=== PATIENT | female | born 1990 | race Caucasian/White ===

== ENCOUNTER 2022-03-29 11:56 | Outpatient (CLI) | payer BC, SELFPAY ==
--- NOTE | 2022-03-29 12:15 | CRLHL7_ITS ---
For Patients: As a result of the Century Cures Act, medical imaging exams and procedure reports are released immediately into your electronic medical record. You may view this report before your referring provider. If you have questions, please contact your health care provider. INDICATION: Dating and viability. LMP 01/19/2022. COMPARISON: None. TECHNIQUE: Real-time boyd-scale imaging of the pelvis was performed. FINDINGS: Sonographic imaging demonstrates a single living intrauterine gestation. The embryo has a regular cardiac rate measuring 165 beats per minute. The embryo`s crown-rump length measurement of 3.7 cm corresponds to a gestational age of 10 weeks 4 days with a sonographic due date of 10/21/2022. There is a normal-appearing yolk sac. The placenta has not yet developed. No evidence of a perigestational hemorrhage. The cervix appears closed. The right ovary measures 3.7 x 3.0 x 2.5 cm and the left ovary measures 3.1 x 1.7 x 1.6 cm. There is a 2.5 cm corpus luteum in the right ovary. No free fluid in the cul-de-sac. IMPRESSION: 1. Single living intrauterine gestation with crown rump length 3.7 cm which corresponds to a gestational age of 10 weeks 4 days with a sonographic due date of 10/21/2022. 2. The clinical gestational age by LMP is 9 weeks 6 days. Dictated by Elisabet Jj MD @ 03/29/2022 12:58:57 PM (Electronically Signed)
== END 2022-03-29 11:57 | disposition home or self-care (01) ==
LOC: US 11:56
PROVIDERS: PCP Family Medicine; Visit Provider Physician Assistant
DX: Z34.91 Encounter for supervision of normal pregnancy, unspecified, first trimester (principal); Z3A.09 9 weeks gestation of pregnancy
CPT/HCPCS: 76801; 76817; 86592; 86703; 86762; 86787; 86803; 86850; 86900; 86901; 87086; 87340

== ENCOUNTER 2022-06-08 12:03 | Outpatient (CLI) | payer BC, SELFPAY ==
--- NOTE | 2022-06-08 12:15 | CRLHL7_ITS ---
For Patients: As a result of the Century Cures Act, medical imaging exams and procedure reports are released immediately into your electronic medical record. You may view this report before your referring provider. If you have questions, please contact your health care provider. INDICATION: Evaluate anatomy. COMPARISON: 03/29/2022 TECHNIQUE: Real time boyd scale imaging of the fetus was performed as well as color Doppler analysis of the umbilical vessels. FINDINGS: Sonographic imaging demonstrates a single living intrauterine gestation. Fetus demonstrates a regular cardiac rate of 145 beats per minute. Fetus has a vertex position. The placenta lies fundal without evidence of placenta previa. The edge of the placenta is more than 5 cm from the internal cervical os. Amniotic fluid volume appears normal. Single deepest vertical pocket: 5.9 cm. The cervix is closed and measures 3.2 cm in length. The composite ultrasound gestational age is calculated at 20 weeks 6 days with an estimated sonographic due date of 10/20/2022. The estimated weight is 365 grams which lies at the 79th %. The following biometric measurements were obtained: Biparietal diameter: 4.9 cm/20 weeks 6 days 84th% Head circumference: 18.1 cm/20 weeks 4 days 67th% Abdominal circumference: 15.6 cm/20 weeks 5 days 70th% Femur length: 3.3 cm/20 weeks 3 days 57th% The HC/AC ratio measures: 1.16 range (1.06-1.25) On anatomic survey, there is a normal appearance of the cerebral ventricles, cavum septi pellucidi, cisterna magna and cerebellum. The nose, lips, and facial profile appear normal. The cervical, thoracic and lumbar spine are well visualized and appear normal. There is a normal four-chamber heart view and the left and right ventricular outflow tracts appear normal. The diaphragm and stomach appear normal. The kidneys and bladder also appear normal. There is a normal three-vessel cord and cord insertion site. The four extremities appear normal. IMPRESSION: Normal OB ultrasound exam with concordance of clinical and sonographic dating. No intrinsic abnormalities noted on anatomic survey. Dictated by Chencho Marie MD @ 06/08/2022 1:09:02 PM (Electronically Signed)
== END 2022-06-08 12:04 | disposition home or self-care (01) ==
LOC: US 12:04
PROVIDERS: PCP Family Medicine; Visit Provider Registered Nurse
DX: Z34.92 Encounter for supervision of normal pregnancy, unspecified, second trimester (principal); Z3A.20 20 weeks gestation of pregnancy
CPT/HCPCS: 76805

== ENCOUNTER 2022-09-28 10:41 | Outpatient (CLI) | payer BC, MEDICAID, SELFPAY ==
[2022-09-29 11:08] LABS: Strep B DNA Probe NEGATIVE (Negative)
[2022-09-29 12:31] LABS: Strep B Pen/Amox Allergy No
== END 2022-09-28 10:42 | disposition home or self-care (01) ==
PROVIDERS: PCP Family Medicine; Visit Provider Advanced Practice Midwife
DX: Z34.93 Encounter for supervision of normal pregnancy, unspecified, third trimester (principal); Z3A.36 36 weeks gestation of pregnancy
CPT/HCPCS: 87081; 87653

== ENCOUNTER 2022-10-18 19:16 | Inpatient (IN) | payer BC, MEDICAID, SELFPAY ==
[2022-10-18] VITALS (7 sets, daily range): BP systolic 124–130; BP diastolic 61–83; PULSE 62–90; RESP 16; TEMP 36.6–37.2; BMI 23.8
[2022-10-18 20:10] LABS: Basophils Absolute Auto 0.02 K/uL (0.00-0.30); Basophils Percent Auto 0.2 % (0.0-3.0); Eosinophils Absolute Auto 0.05 K/uL (0.00-0.50); Eosinophils Percent Auto 0.5 % (0.0-7.0); Hematocrit 37.5 % (33.0-51.0); Hemoglobin* 12.8 gm/dL (12.0-16.0); Immature Granulocytes Abs Auto 0.06 K/uL (0.00-0.30); Immature Granulocytes Pct Auto 0.6 %; Lymphocytes Percent Auto 14.8 % (20-44); Mean Corpuscular HGB Conc 34 gm/dL (32-36); Mean Corpuscular Hemoglobin 29 pg (26-34); Mean Corpuscular Volume 86 fL (80-100); Monocytes Percent Auto 4.4 % (0.0-11.0); Neutrophils Percent Auto 79.5 % (42.0-72.0); Platelet Count* 154 K/uL (140-440); RDW Coefficient of Variation % 11.9 % (11.5-15.5); Red Blood Count 4.37 m/uL (4.00-5.20); White Blood Count* 10.03 K/uL (4.50-11.00)
[2022-10-18 20:12] LABS: Slide Review Reflex No
[2022-10-18] MEDS: OXYTOCIN 30 unit/500 ML in NS 30 UNIT/500 ML BAG IVPB (20:20)
[2022-10-18] MEDS: LACTATED RINGERS 1000 ML 1,000 ML 125 ML IV (20:23)
--- NOTE | 2022-10-18 20:37 | W.PM.LDBA ---
Subjective History of Present Illness Time Seen by Provider: 19:45 Date Seen: 10/18/22 Comments: Steve is being admitted to Labor and Delivery for an IOL for severe IUGR. She is a 32 year old G 2 P 1 at?38.6 weeks gestation. Her full history and physical was dictated by Anahi Sanders on 10/10/22. Please see this for details. Steve was seen in the clinic yesterday, where it was noted that she was measuring small for gestational age. In addition, there had been no change in fundal height X 3 appointments. A growth u/s was ordered, which was done today which demonstrated EFW [id number] grams, 5 lb 11 oz. This is under the 3 percentile. LC is also on the lower limits of normal (SDP 2.1/LC 6.2). BPP was 8/8 and cord dopplers WNL. She previously had an u/s on 08/15/22 for measring small for dates, and EFW at that time was noted to be 63%. She was notified of the severe IUGR and the recommendation for IOL immediately. Her partner is at the bedside for support. She desires an epidural for pain management. OB Problem List: H&P 10/10/22 by Anahi Sanders CNM 1. Pap , declined Pap at 1st OB 2. A negative Rhogam at 28 weeks: received Rhogam PP: 3. Measuring small for dates at 32 weeks -growth u/s at 28 wks, 63% -repeat growth ordered at 38 wks: OB - Problem Based A/P Additional Plan (1) IUGR (intrauterine growth restriction): Status: Acute (2) Encounter for induction of labor: Status: Acute Plan at 38.6 weeks GBS negative RH negative, otherwise uncomplicated IOL for severe IUGR 1. Admit to L & D for IOL 2. We reviewed the risks and benefits of various induction methods. We also reviewed the risks of IOL & labor with IUGR infants, including intolerance to labor. Based on her SVE, the decision was made to proceed with pitocin per protocol. 3. IV placement r/t IUGR, desire for pain management and need for pitocin 4. Continuous monitoring r/t IUGR 5. Candidate for analgesia of choice. Planning epidural for pain management. Will notify when she desires it. 6. Anticipate progress to NVD. Delivery/Labor/Induction Plan Plan: induction Induction method: per pitocin protocol OB Exam Physical Exam Vital signs: Temp Pulse Resp BP 98.9 F 90 16 124/83 10/18/22 20:26 10/18/22 20:20 10/18/22 20:26 10/18/22 20:20 Narrative: VSS, afebrile? General Appearance:? Calm, cooperative.? No acute distress.? Normal affect.? Psychiatric Exam: Alert and oriented, appropriate affect? HEENT: normocephalic, neck supple, full ROM? Respiratory:? Symmetrical chest wall movement.? Normal respiratory effort.? Clear to auscultation? Cardiac:? regular rate and rhythm? Abdomen: Gravid, non tender? Extremities:? normal and trace edema? Skin: warm, dry.??? Ctx:? No ctx FHTs:? Baseline: 130.? Variability: moderate.?? Accels: present.??? Decels:? none.? SVE: 3/70/0, mid postion, starting to soften. ? Membranes: intact? Detailed Labor and Delivery Exam Patient Gravid: Yes
[2022-10-19] VITALS (43 sets, daily range): BP systolic 108–155; BP diastolic 53–90; PULSE 62–110; RESP 16–18; TEMP 36.6–37.4; O2SAT 96–100
[2022-10-19] MEDS: LIDOCAINE 2% (PF) 5 ML VIAL EPIDURAL (01:50)
[2022-10-19] MEDS: ROPIVACAINE 0.2% 100 ml 100 ML 12 MG EPIDURAL (01:54)
[2022-10-19] MEDS: ROPIVACAINE 0.2 % PF 10 ML INJ 20 MG EPIDURAL (01:54)
--- NOTE | 2022-10-19 01:59 | P.ANBPRC_ITS ---
[facility] Medical History (Updated 10/18/22 @ 20:56 by Arely Loera CNM) No significant medical problems Surgical History (Updated 10/10/22 @ 11:59 by Humaira Sanders CNM) No history of previous surgery Social History (Updated 10/10/22 @ 12:00 by Humaira Sanders CNM) Narrative: Occupation: [employer]. Marital status: . Voodoo/cultural needs: no. Chemical or radiation exposure: no. Pre- tobacco use: no. Pre- alcohol use: no. Current tobacco use: no. Current alcohol use: no. Recreational drug use: no. Dietary restrictions: no. Blood transfusion acceptable in an emergency: yes [employer]. . Nonsmoker What is your current living situation?: I presently have a place to live Problems where you live: no known problems In the past 12 months, utilities in danger of being shut off: no In the past 12 mos, have been you worried that your food would run out before you had money to buy more?: never true In the past 12 mos, the food you bought just didn't last and you didn't have money to buy more?: never true Smoking Status: Never smoker How often does anyone, including family, friends and others, physically hurt you : never How often does anyone, including family, friends and others, insult or talk down to you: never How often does anyone, including family, friends and others, threaten you with harm: never How often does anyone, including family, friends and others, scream or curse at you: never Little interest or pleasure in doing things: not at all Feeling down, depressed, or hopeless: not at all Meds Home Medications and Allergies Home Medications Medication Instructions Recorded Confirmed Type docosahexaenoic acid 200 mg 200 mg PO DAILY 04/26/22 10/18/22 History capsule ( DHA) Allergies Allergy/AdvReac Type Severity Reaction Status Date / Time No Known Allergies Allergy Unknown Verified 10/18/22 20:40 Results Labs Labs: Laboratory Results - last 24 hr 10/18/22 20:03 WBC 10.03 RBC 4.37 Hgb 12.8 Hct 37.5 MCV 86 MCH 29 MCHC 34 RDW Coeff of Garry 11.9 Plt Count 154 Neut % (Auto) 79.5 H Lymph % (Auto) 14.8 L [place] % (Auto) 4.4 Eos % (Auto) 0.5 Baso % (Auto) 0.2 Neut # (Auto) 8.00 H Lymph # (Auto) 1.50 [place] # (Auto) 0.40 Eos # (Auto) 0.05 Baso # (Auto) 0.02 Abs Immat Gran (auto) 0.06 Imm/Tot Granulo (auto) 0.6 Blood Type A Negative Antibody Screen POSITIVE Vital Signs Vital Signs: Last Vital Signs Temp 97.8 F 10/18/22 23:44 Pulse 86 10/19/22 01:58 Resp 16 10/18/22 23:44 BP 137/67 10/19/22 01:58 Pulse Ox 99 10/19/22 01:57 Weight: 66.905 kg Height: 167.64 cm Anesthesia Procedures Epidural Insertion Patient Location: OB Start Time: 01:10 Stop Time: 01:59 Start Date: 10/19/22 Stop Date: 10/19/22 Reason for Block: procedure for pain Patient Position: sitting Performed By: Cezar Shelton Preanesthetic Checklist: IV checked, risks and benefits discussed, surgical consent, monitors and equipment checked, pre-op evaluation, timeout performed and anesthesia consent Prep: chlorhexidine gluconate Monitoring: blood pressure monitoring, continuous pulse oximetry and heart rate Approach: midline Vertebral Space: lumbar (1-5) Needle Type: Tuohy needle Injection Technique: continuous catheter Needle gauge: 17 Needle Length (cm): 10 cm Needle Insertion Depth (cm): 7 Catheter Gauge: 19 Catheter Type: multi-orifice Catheter at skin depth (cm): 13 Test Dose Result: negative and lidocaine 1.5% with epinephrine 1 to 200,000
[2022-10-19] MEDS: LACTATED RINGERS 1000 ML 1,000 ML 500 ML IV (02:01)
--- NOTE | 2022-10-19 03:55 | W.PM.OBVAGDE ---
OB Procedure Vag Delivery Mother Details Mother Details: The patient is a 32 year-old, 2, Para 1, admitted on 10/18/22 at 38.6 Days gestation, delivered at 39.0 : 2 Para: 1 Weeks Gestation: 39.0 Admission Date: 10/18/22 Additional Details Amniotic Membrane Status: SROM Amniotic Membrane Rupture Date: 10/19/22 Amniotic Membrane Rupture Time: 03:38 Amniotic Membrane Fluid Description: Meconium Stained (thick, noted after delivery) Analgesia/Anesthesia Type: Epidural Waterbirth: No Pitcoin: Yes (for IOL & AMTSL) Intrapartal Events: Labor Induction and Mod/Heavy Meconium Fluid Induction Method: per pitocin protocol Labor Onset: 01:00 Complete: 03:25 Pushin:28 Heart: heart tones during second stage: 135, mod variability, variable decels w/ pushing. Brief return to baseline between ctx. Delivery Details Delivery Date: 10/19/22 Delivery Time: 03:38 Route of delivery: Gender: Male Infant Viability: Alive; Heart Rate Present Position at Delivery: OA Delivery Details: Steve was admitted yesterday evening for a pitocin IOL for severe IUGR. She requested an epidural, which was placed, but increased pressure noted. SVE 5-6, +1 station. Shortly after, increased pressure noted, and SVE complete +1 station. She began pushing, with good descent noted. Variable decels w/ pushing/ctx, but noted almost immediately after pushing began. SROM occurred just prior to delivery. At 0338 a viable?male delivered in vertex OA presentation over intact perineum via spontaneous vaginal?delivery. ?Infant was placed on maternal abdomen. ?Cord was clamped and cut after a few minute delay, when it was noted to have stopped pulsing.? Small amount of thick mec stained fluid noted after delivery. Nose and mouth were bulb suctioned.? Infant weight pending. ? 8 at 1 minute and 9 at 5 minutes. ?Shoulder dystocia: no. ?Nuchal cord: no. Placenta delivered spontaneously and complete at 0344 with a 3 vessel cord. Placenta noted to be C shaped, but no evidence of missing placenta areas. Believed to be intact. Sent to pathology for further evaluation. Mother and infant were stable after?delivery. Lacerations:? abrasions only, not bleeding, not repaired 1 Minute Interval Total Score: 8 5 Minute Interval Total Score: 9 Additional Details Shoulder Dystocia: No Placenta Delivery Time: 03:44 Placental Delivery Description: Spontaneous Procedure Done: Global Blood Loss: 25 Laceration: Superficial (not repaired) Blood Loss Measurement Type: QBL Bakri Used: No Sponge/Need Count Correct: Yes Cord Vessel Description: 3 Vessels Event Summary Status: Mother and were stable after delivery. Disposition: floor
[2022-10-19] MEDS: IBUPROFEN 600 MG TABLET PO ×2 (07:21→15:12)
[2022-10-19] MEDS: DOCUSATE SODIUM 100 MG CAPSULE PO (12:10)
[2022-10-20] VITALS: BP 120/80; PULSE 62; RESP 18; TEMP 36.8; O2SAT 99
[2022-10-20] MEDS: IBUPROFEN 600 MG TABLET PO ×2 (00:04→05:40)
[2022-10-20 05:30] VITALS: BP 123/83; PULSE 56; RESP 16; TEMP 36.6; O2SAT 99
[2022-10-20 07:38] VITALS: BP 136/81; PULSE 58; RESP 16; TEMP 36.5; O2SAT 99
[2022-10-20] MEDS: DOCUSATE SODIUM 100 MG CAPSULE PO (07:48)
[2022-10-20] MEDS: ACETAMINOPHEN 500 MG TABLET 1000 MG PO (07:48)
--- NOTE | 2022-10-20 10:26 | PM.OBDSVD1 ---
DS: Providers Provider Date Seen: 10/20/22 Date of admission: 10/18/22 19:16 Primary care physician: Not a Local Provider Admitting Clinician: Arely Loera CNM Attending Physician on discharge: Arely Loera CNM Date of Discharge: 10/20/22 DS: Diagnosis Discharge Diagnosis (1) care following vaginal delivery: Status: Acute (2) Lactating mother: Status: Acute Exam Narrative: Exam Narrative: GENERAL APPEARANCE:? normal affect, alert, no distress? MOOD:? appropriate? CHEST:? clear to auscultation and percussion? HEART:? regular rate and rhythm? ABDOMEN:? soft, non-tender the uterine fundus is 2 cm Below Umbilicus, Midline and is appropriate for the stage of recovery. ? PERINEUM:? mild edema of the perineum, there is an intact perineum that is healing well.? EXTREMITIES:? normal and no edema? Patient has no complaints? No active bleeding?? Doing well? She is requesting discharge home. Const: Vital Signs, click to edit/add: Vital Signs - 24 hr 10/19/22 12:11 10/19/22 15:30 10/19/22 20:00 Temperature 97.9 F 98.0 F 98.4 F Pulse Rate [Pulse Oximeter] 64 62 Respiratory Rate 16 16 16 Blood Pressure [Le ft Arm] 134/86 136/90 H 150/89 H Pulse Oximetry 98 97 99 Oxygen Delivery Me thod Room Air Room Air Room Air 10/19/22 20:15 10/20/22 00:00 10/20/22 05:30 Temperature 98.2 F 97.9 F Pulse Rate [Pulse Oximeter] 62 56 L Respiratory Rate 18 16 Blood Pressure [Le ft Arm] 145/87 H 120/80 123/83 Pulse Oximetry 99 99 Oxygen Delivery Me thod Room Air Room Air 10/20/22 07:38 Temperature 97.7 F Pulse Rate [Pulse Oximeter] 58 L Respiratory Rate 16 Blood Pressure [Le ft Arm] 136/81 Pulse Oximetry 99 Oxygen Delivery Me thod Room Air OB - DS: Summary Hospital Course Hospital Course: Patient is a 32year old, G 2 now P 2? admitted on 10/18/22 at 39 Weeks, 0 Days gestation for IOL for severe IUGR.? She had an uncomplicated vaginal delivery.? She delivered a viable male .? She is breast feeding and reports things are well.? the patient has done well.? Her pain is well controlled with current medications.? She has no new complaints.? Vitals have been stable. She has remained afebrile. She is voiding without difficulty. She is passing gas and has not had a bowel movement. She is ambulating and denies any dizziness. She is planning possibly IUD and partner vasectomy for control.?She is not sure if she will want to get an IUD at 6 weeks or wait until later.?? Peripartum Data Infant delivery method: Vaginal Laceration description: None Episiotomy description: None complications: none [place] Infant Gender: Male Discharge Plan: Home Status at Discharge Functional status at discharge: independent ambulation Overall status at discharge: patient is progressing back to baseline Time Spent with Patient Time attestation: Total time spent providing and/or coordinating discharge services: Discharge Plan Discharge Disposition: Home, Self-Care Date of Admission: 10/18/22 19:16 Attending Provider on Discharge: Humaira Sanders Primary Care Provider: Provider,Not a Local Condition: Stable Anticipated Discharge Date/Time: 10/20/22 12:00 Discharge Medications: New docusate sodium 100 mg Capsule 100 mg PO DAILY Qty: 60 0RF Rx Instructions: Take 1-2 tablets daily as needed for constipation. ibuprofen 600 mg Tablet 600 mg PO Q6H PRNQty: 30 0RF Continued DHA 200 mg capsule 200 mg PO DAILY Discharge Orders: Discharge Order (Routine); Ordered 10/20/22 Ordered By: Humaira Sanders Additional Instructions: Discharge instructions were reviewed with the patient including signs and symptoms of infection and home going medications.? Lifting Restrictions: 20 pounds for 6? weeks? ?? Do not drive while taking narcotic pain meds.? Off Work or School for 6 weeks.? ?? Symptoms to report to doctor:? -Bleeding that saturates more than one pad per hour? -Passing clots larger than the size of a golf ball? -Pain not relieved by prescribed medication? -Fever above 100.4 degrees Fahrenheit? -A foul vaginal odor? -Difficulty in emotions, mood and functions? -Thoughts of hurting yourself and/or ? -Painful, reddened area in your breast? -Any drainage, redness or tenderness in your IV/epidural site? -Severe headache that doesn't improve after taking medications? -Changes in vision, including temporary loss of vision, blurred vision, and/or light sensitivity? -Upper abdominal pain (usually under ribs on the right side)? -Decrease in urination or painful, frequent urinating? -Chest pain? -Shortness of breath? -Tenderness or pain with redness and/swelling in the calf(s) of your leg? ?? Follow Up in clinic in 2 and 6 weeks.? ?? consultation services are available to all mothers and babies for the first year after delivery.? To make an appointment, please call [phone].? Activity Level: Activity as Tolerated Discharge Diet: Regular Follow Up Appointments: Provider,Not a Local [Primary Care Provider] - [facility] [Provider Group] Forms: MyHealth Info Instructions
== END 2022-10-20 12:30 | disposition home or self-care (01) | DRG 560 ==
PROVIDERS: Admitting Provider Advanced Practice Midwife; Visit Provider Advanced Practice Midwife
DX: O36.5930 Maternal care for other known or suspected poor fetal growth, third trimester, not applicable or unspecified (principal); O77.0 Labor and delivery complicated by meconium in amniotic fluid; O26.893 Other specified pregnancy related conditions, third trimester; Z67.11 Type A blood, Rh negative; Z3A.38 38 weeks gestation of pregnancy; Z37.0 Single live birth
CPT/HCPCS: 01967; 36415; 76816; 76819; 76820; 85025; 85461; 86850; 86870; 86880; 86900; 86901; 88307; A9270; J2795; J7120

== ENCOUNTER 2022-10-21 12:55 | Outpatient (CLI) | payer BC, MEDICAID, SELFPAY ==
[2022-10-21 13:55] VITALS: BP 122/96; PULSE 72; RESP 16; TEMP 37; O2SAT 96
== END 2022-10-21 12:56 | disposition home or self-care (01) ==
PROVIDERS: Visit Provider Advanced Practice Midwife
DX: Z39.1 Encounter for care and examination of lactating mother (principal)
CPT/HCPCS: 36415; 85461; J2791